=== PATIENT | female | born 1960 | race Caucasian/White ===

== ENCOUNTER 2021-10-09 19:58 | Emergency (ER) | payer OTHER ==
[~2021-10-09] VITALS: Ht 157.5 cm; Wt 71.2 kg
[2021-10-09 20:24] VITALS: BP 165/80
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
--- NOTE | 2021-10-09 21:20 | NUR ---
EMT PRANEETH CLEANING WOUND.ERMD AT BEDSIDE
[2021-10-09] MEDS: LIDOCAINE MPF 1% 10 MG/ML VIAL INJ ONE (21:40)
[2021-10-09] MEDS: BACITRACIN OINT 500 UNITS/GM PKT TP ONE (21:41)
[2021-10-09 22:20] VITALS: BP 160/85
--- NOTE | 2021-10-09 22:20 | NUR ---
Patient discharged with v/s stable. Written and verbal after care instructions given and explained. Patient verbalized understanding. Ambulatory with steady gait. All questions addressed prior to discharge. Advised to follow up with PMD.
== END 2021-10-09 22:20 | disposition home or self-care (01) ==
LOC: MED 19:58
DX: S51.811A Laceration without foreign body of right forearm, initial encounter (principal); I10 Essential (primary) hypertension; Z90.710 Acquired absence of both cervix and uterus; W26.0XXA Contact with knife, initial encounter; Y93.89 Activity, other specified; Y92.89 Other specified places as the place of occurrence of the external cause; Y99.8 Other external cause status
CPT/HCPCS: 12001; 90471; 90715; 99283; J2001

== ENCOUNTER 2021-10-15 12:11 | Emergency (ER) | payer OTHER ==
[~2021-10-15] VITALS: Ht 172.7 cm; Wt 79.4 kg
[2021-10-15 12:20] VITALS: BP 142/68
--- NOTE | 2021-10-15 12:25 | NUR ---
TO ER BED 1
--- NOTE | 2021-10-15 12:34 | NUR ---
pt bib self c/o suture removal rt arm 6 days ago.
--- NOTE | 2021-10-15 12:52 | NUR ---
NO NURSING CARE RENDERED Patient discharged with v/s stable. Written and verbal after care instructions given and explained. Patient alert, oriented and verbalized understanding of instructions. Ambulatory with steady gait. All questions addressed prior to discharge. ID band removed. Patient advised to follow up with PMD. NO Rx given. Patient educated on indication of medication including possible reaction and side effects. Opportunity to ask questions provided and answered.
[2021-10-15 12:55] VITALS: BP 138/66
== END 2021-10-15 12:55 | disposition home or self-care (01) ==
LOC: MED 12:11
DX: S51.811D Laceration without foreign body of right forearm, subsequent encounter (principal); Z48.00 Encounter for change or removal of nonsurgical wound dressing; I10 Essential (primary) hypertension; X58.XXXD Exposure to other specified factors, subsequent encounter
CPT/HCPCS: 99281